=== PATIENT | male | born 1955 | race Caucasian/White ===

== ENCOUNTER 2019-02-03 17:52 | Emergency (ER) | payer BC ==
--- OUTSIDE RECORDS SUMMARY | 2019-02-03 18:08 | XMS REPORT | Continuity of Care Document ---
:1955 External Reference #:[id number] Author Name Edward Bryan MD (transmitted by agent of provider Deisy Paulson ) Address [address] [place] [id number] Care Team Providers Name Role Phone Rico Leija MD - Internal Care Team Information Manual Qa Tester Medicine Problems Active Problems Provider Date Chest pain Sunni Melchor M.D. Onset: 12/05/2014 Essential hypertension Sunni Melchor M.D. Onset: 12/05/2014 Thoracic Aortic Ectasia Sunni Melchor M.D. Onset: 12/05/2014 Social History Type Date Description Comments Sex Unknown Tobacco Use Start: Unknown Never Smoked Cigarettes Smoking Status Reviewed: 12/23/18 Never Smoked Cigarettes ETOH Use Occasionally consumes alcohol Tobacco Use Start: Unknown Patient has never smoked Recreational Drug Use Denies Drug Use Exercise Type/Frequency Exercises regularly Allergies, Adverse Reactions, Alerts Active Allergies Reaction Severity Comments Date Sulfa Antibiotics facial swelling- 1987 09/12/2014 Clinoril 09/12/2014 Medications Active Medications SIG Qnty Indications Ordering Date Provider Lisinopril 1 by mouth every 90tabs Qutaybeh S. 02/21/2016 10mg Tablets day Rosalinda Huber Diltiazem HCL ER 1 by mouth every 90caps Qutaybeh S. 05/25/2015 120mg day Rosalinda Huber Caps ER 24HR Lexapro 1.5 by mouth Unknown 10mg Tablets every day Cpap used at night Unknown Device Atorvastatin Calcium take 1 tablet at 90tabs Qutaybeh S. bedtime Rosalinda Huber 20mg Tablets Metoprolol Tartrate 1 by mouth twice 180tabs Qutaybeh S. daily Rosalinda Huber 25mg Tablets Strattera 1 cap po daily Unknown 80mg Capsules Trazodone HCL Take 1/2 to 1 Rico Leija, 50mg tablet po 30 MD Tablets minsprior to bedtime as needed Vitamin C 1 by mouth every Unknown 1000mg other day Tablets Eliquis 1 by mouth twice Unknown 5mg Tablets a day Co Q-10 2 by mouth every Unknown 200mg Capsules day B12 1 po qd Unknown 500mg Tablets Dispers Optimized Folate 1 po qd Unknown [id number] Capsules Vit E 1 po qd Unknown 268mg Capsules Medications Administered in Office Medication SIG Qnty Indications Ordering Provider Date Depomedrol 40MG Victorina Castro PA-C 10/01/2018 Injection Depomedrol 40MG Victorina Castro PA-C 10/01/2018 Injection Immunizations Description No Information Available Vital Signs Date Vital Result Comment 12/23/2018 2:30pm Height 71 inches 5'11" Weight 227.00 lb Heart Rate 69 /min BP Systolic 140 mmHg BP Diastolic 76 mmHg Body Temperature 97.2 F Pain Level 1 BMI (Body Mass Index) 31.7 kg/m2 11/10/2018 9:24am Height 71 inches 5'11" Weight 230.00 lb BP Systolic 130 mmHg BP Diastolic 70 mmHg Respiratory Rate 20 /min Pain Level 3 BMI (Body Mass Index) 32.1 kg/m2 Results Test Date Facility Test Result H/L Range Note Basic Metabolic 09/11/2018 [facility] Sodium 138 mmol/L Normal 135-[address] [place] [address] [phone] Potassium 4.4 mmol/L Normal 3.5-5.0 Chloride 104 mmol/L Normal 101-111 Co2 Carbon Dioxide 27 mmol/L Normal 22-32 Anion Gap 7 mmol/L Normal 2-11 Glucose 94 mg/dL Normal 70-100 Blood Urea Nitrogen 17 mg/dL Normal 6-24 Creatinine 0.85 mg/dL Normal 0.67-1.17 BUN/Creatinine Ratio 20.0 Normal 8-20 Calcium 9.1 mg/dL Normal 8.6-10.3 Egfr Non- 91.3 >60 Egfr 110.5 >60 1 Lipid Profile 09/11/2018 [facility] Triglycerides 73 mg/dL 2 (Trig/Chol/HDL) [address] [place], [place] [id number] [phone] Cholesterol 152 mg/dL 3 HDL Cholesterol 45.9 mg/dL 4 LDL Cholesterol 92 mg/dL 5 Laboratory test 09/11/2018 [facility] Alt (SGPT) 24 U/L Normal 7-52 [address] [place] [address] [phone] 1 Because ethnic data is not always readily available, this report includes an eGFR for both -Americans and non- Americans. The National Kidney Disease Education Program (NKDEP) does not endorse the use of the MDRD equation for patients that are not between the ages of 18 and 70, are , have extremes of body size, muscle mass, or nutritional status, or are non- or non-. According to the National Kidney Foundation, irrespective of diagnosis, the stage of the disease is based on the level of kidney function: Stage Description GFR(mL/min/1.73 m(2)) 1 Kidney damage with normal or decreased GFR 90 2 Kidney damage with mild decrease in GFR 60-89 3 Moderate decrease in GFR 30-59 4 Severe decrease in GFR 15-29 5 Kidney failure <15 (or dialysis) 2 Desirable: <150 Borderline High: 150-199 High: 200-499 Very High: >500 3 Desirable: <200 Borderline High: 200-239 High: >239 4 Low: <40 Desirable: 40-60 High: >60 5 Desirable: <100 Near Optimal: 100-129 Borderline High: 130-159 High: 160-189 Very High: >189 6 FASTING 12 HOUR Copy Result to: Eder HUBER ([id number]) Procedures Date Code Description Status 10/01/2018 29364 Inject/Drain Joint/Bursa Major W/O US Completed 09/26/2017 02111818 Colonoscopy Completed Medical Devices Description No Information Available Encounters Type Date Location Provider Dx Diagnosis Office Visit 11/10/2018 [facility] Edward F M75.52 Bursitis of left 9:15a Of Kamlesh Bryan MD shoulder M75.51 Bursitis of right shoulder M75.81 Other shoulder lesions, right shoulder M75.82 Other shoulder lesions, left shoulder Office Visit 10/01/2018 9:30a Orthopedic Edward Espitia M25.512 Pain in left Services Of MD Randi shoulder Kamlesh M75.42 Impingement syndrome of left shoulder M25.511 Pain in right shoulder M75.41 Impingement syndrome of right shoulder M75.51 Bursitis of right shoulder M75.52 Bursitis of left shoulder M75.81 Other shoulder lesions, right shoulder M75.82 Other shoulder lesions, left shoulder Assessments Date Code Description Provider 12/23/2018 M75.52 Bursitis of left shoulder Edward Bryan MD 12/23/2018 M75.82 Other shoulder lesions, left shoulder Edward Bryan MD 12/23/2018 M75.42 Impingement syndrome of left shoulder Edward Bryan MD 12/23/2018 S46.012D Strain of muscle(s) and tendon(s) of the Edward Bryan MD rotator cuff of left shoulder, subsequent encounter 11/10/2018 M75.52 Bursitis of left shoulder Edward Bryan MD 11/10/2018 M75.51 Bursitis of right shoulder Edwrad Bryan MD 11/10/2018 M75.81 Other shoulder lesions, right shoulder Edward Bryan MD 11/10/2018 M75.82 Other shoulder lesions, left shoulder Edward Bryan MD 10/01/2018 M75.51 Bursitis of right shoulder Victorina Castro PA-C 10/01/2018 M75.52 Bursitis of left shoulder Victorina Castro PA-C 10/01/2018 M25.512 Pain in left shoulder Edward Bryan MD 10/01/2018 M75.81 Other shoulder lesions, right shoulder Victorina Castro PA-C 10/01/2018 M75.82 Other shoulder lesions, left shoulder Victorina Castro PA-C 10/01/2018 M75.42 Impingement syndrome of left shoulder Edward Bryan MD 10/01/2018 M25.511 Pain in right shoulder Edward Bryan MD 10/01/2018 M75.41 Impingement syndrome of right shoulder Edward Bryan MD 10/01/2018 M75.51 Bursitis of right shoulder Edward Bryan MD 10/01/2018 M75.52 Bursitis of left shoulder Edward Bryan MD 10/01/2018 M75.81 Other shoulder lesions, right shoulder Edward Bryan MD 10/01/2018 M75.82 Other shoulder lesions, left shoulder Edward Bryan MD Plan of Treatment 12/23/2018 - Edward Bryan, MDM75.52 Bursitis of left shoulderFollow up: Follow up: As saktytU76.82 Other shoulder lesions, left vbynxxahK47.42 Impingement syndrome of left oayedtwfT24.012D Strain of muscle(s) and tendon(s) of the rotator cuff of left shoulder, subsequent encounter Functional Status Description No Information Available Mental Status Description No Information Available Referrals Description No Information Available
--- NOTE | 2019-02-03 18:29 | ED ---
Lower Extremity - HPI Summary HPI Summary: 64 yo male presents with left ankle pain and swelling for the last 2 weeks. He tells me that about 3 weeks ago he went on a flight to [place] and a few days later noticed some swelling and pain to his left ankle. Since that time symptoms have not worsened or improved. 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 He denies injury. Walking worsens pain. Resting and elevating improves symptoms - History of Current Complaint Chief Complaint: EDExtremityLower Stated Complaint: POSS BLOOD CLOT IN LEFT LEG PER PT Time Seen by Provider: 02/03/19 18:29 Hx Obtained From: Patient Severity Initially: Moderate Severity Currently: Moderate Pain Intensity: 5 Pain Scale Used: 0-10 Numeric - Allergies/Home Medications Allergies/Adverse Reactions: Allergies Allergy/AdvReac Type Severity Reaction Status Date / Time MS Sulfa Drugs [Sulfa Drugs] Allergy Intermediate Nausea And Verified 11/29/16 12:19 Vomiting MS Sulindac [From Clinoril] Allergy Rash Verified 11/29/16 12:19 PMH/Surg Hx/FS Hx/Imm Hx Endocrine/Hematology History: Denies: Hx Diabetes Cardiovascular History: Reports: Hx Aneurysm - aortic aneurysm repair, Hx Angina , Hx Coronary Artery Disease, Hx Deep Vein Thrombosis, Hx Embolism, Hx Hypercholesterolemia, Hx Hypertension - ON MEDS, Other Cardiovascular Problems/ Disorders - Hx HTN Denies: Hx Congestive Heart Failure, Hx Pacemaker/ICD Respiratory History: Reports: Hx Pulmonary Edema, Hx Pulmonary Embolism, Hx Sleep Apnea - uses a CPAP, Other Respiratory Problems/Disorders Denies: Hx Asthma GI History: Denies: Hx Gastroesophageal Reflux Disease - mild, untreated History: Denies: Hx Renal Disease Musculoskeletal History: Reports: Other Musculoskeletal History - L knee ACL repair, R knee meniscus tear repair Sensory History: Reports: Hx Contacts or Glasses Denies: Hx Hearing Aid Opthamlomology History: Reports: Hx Contacts or Glasses Neurological History: Reports: Other Neuro Impairments/Disorders - ADD, anxiety , sleep apnea, bipolar Psychiatric History: Reports: Hx Anxiety, Hx Attention Deficit Hyperactivity Disorder, Hx Bipolar Disorder Denies: Hx Panic Disorder - Surgical History Surgical History: Yes Surgery Procedure, Year, and Place: LT ACL SURGERY,RT KNEE SURGERY OSTEOCHONDRITIS DISSECANS,R knee arthroscopic meniscus tear repair,VASECTOMY, aortic aneurysm repair 2015 ([facility] USED PER REPORT SAFE FOR UP TO 3T, [address]) , CABG CELINA Hx Anesthesia Reactions: No - Immunization History Date of Tetanus Vaccine: within 10 years Date of Influenza Vaccine: fall 2012 Infectious Disease History: No Infectious Disease History: Reports: Hx Shingles Denies: Traveled Outside the [place] in Last 30 Days - Family History Known Family History: Positive: Cardiac Disease, Hypertension, Respiratory Disease - Social History Lives: With Family Alcohol Use: Rare Alcohol Amount: 2-3 WEEKLY Substance Use Type: Reports: None Smoking Status (MU): Never Smoked Tobacco Type: Cigarettes Amount Used/How Often: ONLY SPARODIC Have You Smoked in the Last Year: No Review of Systems Constitutional: Negative Musculoskeletal: Other - Left ankle pain and swelling Skin: Negative Neurological: Negative Psychological: Normal All Other Systems Reviewed And Are Negative: No Physical Exam - Summary Physical Exam Summary: GENERAL: NAD. WDWN. No pain distress. SKIN: No rashes, sores, lesions, or open wounds. CHEST: No accessory muscle use. Breathing comfortably and in no distress. CV: Pulses intact PT and DP. Cap refill <2seconds MSK: LEFT ANKLE: Mild edema about ankle joint. Mild TTP about anterior ankle. FROM. Strength 5/5. Negative talar tilt. No increased laxity. Negative Rush s test. NEURO: Alert. Sensations intact and symmetric B/L LEs PSYCH: Age appropriate behavior. Triage Information Reviewed: Yes Vital Signs On Initial Exam: Initial Vitals Temp Pulse Resp BP Pulse Ox 98.0 F 77 16 157/96 96 02/03/19 17:54 02/03/19 17:54 02/03/19 17:54 02/03/19 17:54 02/03/19 17:54 Vital Signs Reviewed: Yes Procedures - Sedation Patient Received Moderate/Deep Sedation with Procedure: No Diagnostics - Vital Signs Vital Signs Temp Pulse Resp BP Pulse Ox 02/03/19 17:54 98.0 F 77 16 157/96 96 - Laboratory Lab Statement: Any lab studies that have been ordered have been reviewed, and results considered in the medical decision making process. - Ultrasound Leg Ultrasound Interpretation Completed By: Radiologist Summary of Ultrasound Findings: IMPRESSION: No DVT of the left lower extremity veins. Popliteal fossa cyst. Lower Extremity Course/Dx - Course Course Of Treatment: US negative. [place], but is not sure if he has ever had a tick bite. There is a possibility of lyme and will draw for this today. Will try pt with cam boot and have him f/u with his PCP or Ortho if symptoms persist - Diagnoses Provider Diagnoses: Ankle swelling Discharge ED - Sign-Out/Discharge Documenting (check all that apply): Patient Departure - Discharge Plan Condition: Stable Disposition: HOME Patient Education Materials: Swollen Joint (ED) Referrals: Jose Monique MD [Medical Doctor] - If Needed Rico Leija MD [Primary Care Provider] - 3 Days Additional Instructions: If you develop a fever, shortness of breath, chest pain, new or worsening symptoms - please call your PCP or go to the ED immediately. Your blood pressure was high at todays visit. Please see your primary provider within 4 weeks for recheck and re-evaluation. The ultrasound of your leg did not show a blood clot today. You have been tested for lyme disease as this can sometimes cause one sided joint pain and swelling without known injury - results of this may take 3 or more days to return and I recommend that you call your primary doctor to ask about these results. If the lyme is negative and your symptoms have not improved with the walking boot - please follow up with Orthopedics or your PCP for further evaluation - Billing Disposition and Condition Condition: STABLE Disposition: Home - Attestation Statements Provider Attestation: I was available for consultation for this patient. I did not evaluate the patient, or participate in any medical decision making or disposition decisions unless I am specifically named in the chart as having consulted on the patient. If I have consulted on the patient, please see my own ED note on the patient encounter. Sohan Pool MD
[2019-02-03 20:58] VITALS: BP 136/92
== END 2019-02-03 20:51 | disposition home or self-care (01) ==
LOC: ED 17:52
DX: M25.472 Effusion, left ankle (principal); I25.10 Atherosclerotic heart disease of native coronary artery without angina pectoris; E78.00 Pure hypercholesterolemia, unspecified; I10 Essential (primary) hypertension; F31.9 Bipolar disorder, unspecified; F41.9 Anxiety disorder, unspecified; F90.9 Attention-deficit hyperactivity disorder, unspecified type; Z95.1 Presence of aortocoronary bypass graft; Z98.52 Vasectomy status; Z86.718 Personal history of other venous thrombosis and embolism; Z86.711 Personal history of pulmonary embolism; Z86.73 Personal history of transient ischemic attack (TIA), and cerebral infarction without residual deficits; Z88.2 Allergy status to sulfonamides; Z88.8 Allergy status to other drugs, medicaments and biological substances; Z87.891 Personal history of nicotine dependence
CPT/HCPCS: 36415; 86618; 99282

== ENCOUNTER 2023-03-20 06:32 | Observation (INO) ==
[~2023-03-20 06:32] MED LIST: HYDROmorphone 1 MG/1 ML SYRINGE IV PRN; Naloxone 0.4 mg VIAL 0.4 mg/ml 1 ml VIAL IV PRN; Ondansetron 4 mg VIAL 2 MG/ML 2 ml VIAL IV PRN; fentaNYL 100 mcg/2 ml 50 MCG/ML VIAL IV PRN
[2023-03-20] MEDS ORDERED: ROPIVACAINE 5 MG/ML 30 ML BTL (0.5%) ONE (07:07)
[2023-03-20] MEDS ORDERED: Phenylephrine IV 10 MG/ML 1 ml VIAL ONE (07:44)
[2023-03-20] MEDS ORDERED: Lidocaine 2% PF 5 ML VIAL ONE (07:44)
[2023-03-20] MEDS ORDERED: Dexamethasone IV 4 MG/ML VIAL 1 ml VIAL ONE ×2 (07:44→10:07)
[2023-03-20] MEDS ORDERED: Tranexamic Acid 1 GM/100ML BAG 2,000 MG/200 ML BAG IV ONE (07:50)
[2023-03-20] MEDS ORDERED: ceFAZolin 2 GM in NS PREMIX 2 GM/100 ML BAG IVPB ONE (07:50)
[2023-03-20] MEDS ORDERED: Midazolam 2 mg/2 ml VIAL 1 mg/ml 2 ml VIAL (2 mg) ONE ×2 (08:21→09:50)
[2023-03-20 08:22] LABS: Rapid COVID-19 Molecular Undetected (Undetected)
[2023-03-20] MEDS ORDERED: Ropivacaine 5 MG/ML 20 ML VIAL 0.5% (100 MG) ONE (08:23)
[2023-03-20] MEDS ORDERED: Lidocaine 1% MPF 5 ML VIAL ONE (08:23)
[2023-03-20] MEDS ORDERED: Ondansetron 4 mg VIAL 2 MG/ML 2 ml VIAL ONE (10:07)
[2023-03-20] MEDS ORDERED: Ondansetron 4 mg VIAL 2 MG/ML 2 ml VIAL IV PRN (11:54)
[2023-03-20] MEDS ORDERED: Lactulose 30 ml UDC PO PRN (11:54)
[2023-03-20] MEDS ORDERED: Ondansetron ODT 4 mg TAB 4 MG TAB PO PRN (11:54)
[2023-03-20] MEDS ORDERED: Magnesium Hydroxide LIQ 30 ML UDC PO PRN (11:54)
[2023-03-20] MEDS ORDERED: Bupivacaine-MPF SPINAL 7.5 MG/ML - 2ML AMP ONE (13:31)
[2023-03-20] MEDS ORDERED: Buffered Lidocaine 1% SYRIN 1 ml INTRADERM ONE (13:47)
[2023-03-20] MEDS: Morphine 2 MG/ML SYRINGE IV PRN ×2 (13:50→23:34)
[2023-03-20] MEDS ORDERED: Lactated Ringers 1000 ml BAG 1,000 ML IV SCH (14:00)
[2023-03-20] MEDS: Lactated Ringers 1000 ml BAG 1,000 ML IV SCH (14:42)
[2023-03-20] MEDS: ceFAZolin 1 GM ADVAN 1 GM in NS 0.9% 50 ML 50 ML IVPB SCH (17:00)
[2023-03-20] MEDS: ICOSAPENT ETHYL 1 GM CAPSULE (NF) PO SCH (21:42)
[2023-03-20] MEDS: Magnesium Hydroxide LIQ 30 ML UDC PO SCH (21:42)
[2023-03-21] MEDS: Lactated Ringers 1000 ml BAG 1,000 ML IV SCH (01:16)
[2023-03-21] MEDS: ceFAZolin 1 GM ADVAN 1 GM in NS 0.9% 50 ML 50 ML IVPB SCH ×2 (01:17→10:21)
[2023-03-21 06:17] LABS: Platelet Count 188 10^3/uL (150-450)
[2023-03-21 06:41] LABS: Calcium 8.6 mg/dL (8.6-10.3); Creatinine, Serum 0.79 mg/dL (0.67-1.17); Potassium 4.1 mmol/L (3.5-5.0); eGFR CKD-EPI 97.4 (>60)
[2023-03-21 06:43] LABS: Hematocrit 38.3 % (38-53); Mean Platelet Volume 8.1 fL (7.5-11.2)
[2023-03-21] MEDS ORDERED: Atomoxetine 40 mg CAP (NF) PO SCH (09:00)
[2023-03-21] MEDS ORDERED: Vitamin THERAPEUTIC TAB PO SCH (09:00)
[2023-03-21] MEDS ORDERED: DIRECTIONS PO SCH (09:00)
[2023-03-21] MEDS ORDERED: COENZYME Q10 ENTER STREGNTH PO SCH (09:00)
[2023-03-21] MEDS: Magnesium Hydroxide LIQ 30 ML UDC PO SCH (10:18)
[2023-03-21] MEDS: ICOSAPENT ETHYL 1 GM CAPSULE (NF) PO SCH (10:19)
[2023-03-21 10:49] VITALS: BP 158/71
== END 2023-03-21 15:00 | disposition home or self-care (01) ==
LOC: SSU 06:32 → OR 06:32
PROVIDERS: ADMIT Orthopaedic Surgery Adult Reconstructive Orthopaedic Surgery; ATTEND Orthopaedic Surgery Adult Reconstructive Orthopaedic Surgery

== ENCOUNTER 2023-08-28 07:30 | Observation (INO) ==
[~2023-08-28 07:30] MED LIST changes: +Dexamethasone IV 4 MG/ML VIAL 1 ml VIAL ONE; -HYDROmorphone 1 MG/1 ML SYRINGE IV PRN; +Lidocaine 2% PF 5 ML VIAL ONE; +Midazolam 2 mg/2 ml VIAL 1 mg/ml 2 ml VIAL (2 mg) ONE; +NS 0.45% 1000 ml BAG 1,000 ML IV SCH; +Ondansetron 4 mg VIAL 2 MG/ML 2 ml VIAL ONE; +Propofol 10 MG/ML 20 ML BTL ONE; +Rocuronium 50 mg VIAL 10 mg/ml 5 ml VIAL (50 mg) ONE; +Sodium Chloride 0.9% 10 ML ONE; -fentaNYL 100 mcg/2 ml 50 MCG/ML VIAL IV PRN; +fentaNYL 100 mcg/2 ml 50 MCG/ML VIAL ONE
[2023-08-28] MEDS ORDERED: Tranexamic Acid 1 GM/100ML BAG 2,000 MG/200 ML BAG IV ONE (08:23)
[2023-08-28] MEDS ORDERED: ceFAZolin 2 GM PREMIX 2 GM/50 ML BAG ONE (08:23)
[2023-08-28 08:50] LABS: Rapid COVID-19 Molecular Undetected (Undetected)
[2023-08-28] MEDS: Lactated Ringers 1000 ml BAG 1,000 ML IV SCH ×2 (08:53→17:00)
[2023-08-28] MEDS ORDERED: ROPIVACAINE 5 MG/ML 30 ML BTL (0.5%) ONE (10:32)
[2023-08-28] MEDS ORDERED: HYDROmorphone 0.5 MG/0.5 ML SYRINGE ONE ×3 (11:51→12:40)
[2023-08-28] MEDS ORDERED: Rocuronium 50 mg VIAL 10 mg/ml 5 ml VIAL (50 mg) ONE ×2 (12:37→13:24)
[2023-08-28] MEDS ORDERED: Lidocaine 2% PF 5 ML VIAL ONE (13:14)
[2023-08-28] MEDS ORDERED: Ondansetron 4 mg VIAL 2 MG/ML 2 ml VIAL IV PRN (14:45)
[2023-08-28] MEDS ORDERED: Calcium Carb (TUMS) 500 mg CHEW TAB PO PRN (14:45)
[2023-08-28] MEDS ORDERED: Magnesium Hydroxide LIQ 30 ML UDC PO PRN (14:45)
[2023-08-28] MEDS ORDERED: Lactulose 30 ml UDC PO PRN (14:45)
[2023-08-28] MEDS ORDERED: Ondansetron ODT 4 mg TAB 4 MG TAB PO PRN (14:45)
[2023-08-28] MEDS ORDERED: fentaNYL 100 mcg/2 ml 50 MCG/ML VIAL ONE (15:30)
[2023-08-28] MEDS: fentaNYL 100 mcg/2 ml 50 MCG/ML VIAL IV PRN (15:31)
[2023-08-28] MEDS: Acetaminophen IV 1 GM/100ML 1,000 MG/100 ML BAG IV ONE (18:26)
[2023-08-28] MEDS: Magnesium Hydroxide LIQ 30 ML UDC PO SCH (20:25)
[2023-08-28] MEDS: ceFAZolin 2 GM in NS PREMIX 2 GM/100 ML BAG IVPB SCH (20:36)
[2023-08-28] MEDS: NF: ICOSAPENT ETHYL 1 GM CAPSULE (NF) PO SCH (21:19)
[2023-08-28] MEDS: Buffered Lidocaine 1% SYRIN 1 ml INTRADERM ONE (21:38)
[2023-08-29 06:07] LABS: Hematocrit 35.9 % (38-53); Hemoglobin 12.2 g/dL (13.2-16.3); Mean Platelet Volume 8.1 fL (7.5-11.2); Platelet Count 187 10^3/uL (150-450)
[2023-08-29 06:22] LABS: Calcium 8.2 mg/dL (8.6-10.3); Creatinine, Serum 0.86 mg/dL (0.67-1.17); Potassium 4.1 mmol/L (3.5-5.0); eGFR CKD-EPI 94.9 (>60)
[2023-08-29] MEDS: CMCS: Atomoxetine 40 mg CAP (NF) PO SCH (08:25)
[2023-08-29] MEDS: DIRECTIONS PO SCH (08:27)
[2023-08-29] MEDS: COENZYME Q10 ENTER STREGNTH PO SCH (08:27)
[2023-08-29] MEDS: Vitamin THERAPEUTIC TAB PO SCH (08:29)
[2023-08-29] MEDS: VITAMIN E PO SCH (08:31)
[2023-08-29] MEDS: QUERCETIN 500 MG PO SCH (08:32)
[2023-08-29 09:59] VITALS: BP 146/74
== END 2023-08-29 14:55 | disposition home or self-care (01) ==
LOC: AA 07:52 → INTOOBSV 07:52 → SSU 14:45
PROVIDERS: ADMIT Orthopaedic Surgery Adult Reconstructive Orthopaedic Surgery; ATTEND Orthopaedic Surgery Adult Reconstructive Orthopaedic Surgery